=== PATIENT | female | born 1930 | race Caucasian/White ===

== ENCOUNTER 2018-05-15 13:07 | Observation (INO) | payer MEDICARE ==
[~2018-05-15] VITALS: Ht 165.1 cm; Wt 64.0 kg
[2018-05-15] MEDS ORDERED: ASPIRIN 81 MG TABLET CHEW PO ONE (13:30)
[2018-05-15] MEDS ORDERED: ASPIRIN 81 MG TABLET CHEW ONE (13:45)
[2018-05-15 13:55] LABS: BASOPHILS # (AUTO) 0.05 x10^3/uL (0-0.1); BASOPHILS % (AUTO) 0 % (0-1); EOSINOPHILS # (AUTO) 0.01 x10^3/uL (0-0.4); EOSINOPHILS % (AUTO) 0 % (1-7); LYMPHOCYTES # (AUTO) 1.57 x10^3/uL (1-3.4); LYMPHOCYTES % (AUTO) 13 % (22-44); MD NO; MEAN CORPUSCULAR HEMOGLOBIN 31.9 pg (27.0-34.8); MEAN CORPUSCULAR HGB CONC 34.2 g/dL (32.4-35.8); MEAN CORPUSCULAR VOLUME 93.3 fL (80-100); MEAN PLATELET VOLUME 7.4 fL (7.4-10.4); MONOCYTES # (AUTO) 1.37 x10^3/uL (0.2-0.8); MONOCYTES % (AUTO) 12 % (2-9); NEUTROPHILS # (AUTO) 8.79 x10^3/uL (1.8-6.8); NEUTROPHILS % (AUTO) 75 % (42-75); PLATELET COUNT 274 x10^3/uL (130-400); RED BLOOD COUNT 4.06 x10^6/uL (3.82-5.3); RED CELL DISTRIBUTION WIDTH 13.9 % (9.6-15.2)
[2018-05-15 14:05] LABS: ANION GAP 11 mmol/L (5-15); CALCIUM 8.9 mg/dL (8.5-10.1); CHLORIDE 105 mmol/L (98-107)
[2018-05-15 14:06] LABS: ALANINE AMINOTRANSFERASE 16 U/L (12-78); ALBUMIN 3.6 g/dL (3.4-5.0)
[2018-05-15 14:10] LABS: ALKALINE PHOSPHATASE 93 U/L (45-117); BILIRUBIN,TOTAL 1.4 mg/dL (0.2-1.0); TROPONIN I < 0.015 ng/mL (0.000-0.045)
[2018-05-15] MEDS ORDERED: vitamin d3 PO (14:23)
[2018-05-15] MEDS ORDERED: ATOR20TA PO (14:23)
[2018-05-15] MEDS ORDERED: ASPI-515 PO (14:23)
[2018-05-15] MEDS ORDERED: vitamin PO (14:23)
[2018-05-15] MEDS ORDERED: MAALOX/HYOSCYAMINE/LIDOCAINE 45 ML BTL PO ONE (16:00)
[2018-05-15] MEDS ORDERED: ONDANSETRON 2MG/ML, 2ML IVPush PRN (17:00)
[2018-05-15] MEDS ORDERED: ACETAMINOPHEN 325 MG TABLET PO PRN (17:00)
[2018-05-15] MEDS ORDERED: ONDANSETRON ODT 4 MG PO PRN (17:00)
[2018-05-15] MEDS ORDERED: LABETALOL 5MG/ML, 20ML IVPush PRN (17:00)
[2018-05-15] MEDS ORDERED: ENALAPRILAT 1.25 MG/ML, 2ML IVPush PRN (17:00)
[2018-05-15 17:38] LABS: TROPONIN I < 0.015 ng/mL (0.000-0.045)
[2018-05-15] MEDS ORDERED: OMNIPAQUE 350 MG/ML, 100ML BOTTLE ONE (18:46)
[2018-05-15 20:00] VITALS: BP 152/94
[2018-05-15] MEDS ORDERED: ATORVASTATIN 20 MG TABLET PO SCH (21:00)
[2018-05-15] MEDS ORDERED: ASPIRIN 81 MG TABLET EC PO SCH (21:00)
[2018-05-15] MEDS ORDERED: BIMA2.5D EACHEYE (21:03)
[2018-05-15] MEDS ORDERED: DORZ10DR7 EACHEYE (21:03)
[2018-05-15] MEDS ORDERED: DORZOLAMIDE OPHTH 2%, 10ML EACHEYE SCH (21:30)
[2018-05-15] MEDS: HEPARIN 5,000 UNITS/ML, 1ML SQ SCH (22:37)
[2018-05-15 23:38] LABS: TROPONIN I < 0.015 ng/mL (0.000-0.045)
[2018-05-16 02:38] VITALS: BP 121/72
[2018-05-16] MEDS: HEPARIN 5,000 UNITS/ML, 1ML SQ SCH ×2 (05:16→14:05)
[2018-05-16 05:25] LABS: BASOPHILS # (AUTO) 0.01 x10^3/uL (0-0.1); BASOPHILS % (AUTO) 0 % (0-1); EOSINOPHILS # (AUTO) 0.02 x10^3/uL (0-0.4); EOSINOPHILS % (AUTO) 0 % (1-7); LYMPHOCYTES # (AUTO) 1.31 x10^3/uL (1-3.4); LYMPHOCYTES % (AUTO) 14 % (22-44); MD NO; MEAN CORPUSCULAR HEMOGLOBIN 32.2 pg (27.0-34.8); MEAN CORPUSCULAR HGB CONC 34.2 g/dL (32.4-35.8); MEAN CORPUSCULAR VOLUME 94.1 fL (80-100); MEAN PLATELET VOLUME 7.7 fL (7.4-10.4); MONOCYTES # (AUTO) 1.35 x10^3/uL (0.2-0.8); MONOCYTES % (AUTO) 15 % (2-9); NEUTROPHILS # (AUTO) 6.68 x10^3/uL (1.8-6.8); NEUTROPHILS % (AUTO) 71 % (42-75); PLATELET COUNT 258 x10^3/uL (130-400); RED BLOOD COUNT 3.99 x10^6/uL (3.82-5.3); RED CELL DISTRIBUTION WIDTH 13.8 % (9.6-15.2)
[2018-05-16 05:26] LABS: ANION GAP 9 mmol/L (5-15); CALCIUM 8.9 mg/dL (8.5-10.1); CHLORIDE 107 mmol/L (98-107)
[2018-05-16 05:27] LABS: CREATININE 0.68 mg/dL (0.55-1.02)
[2018-05-16 07:17] VITALS: BP 150/71
[2018-05-16] MEDS ORDERED: PANTOPRAZOLE 40 MG IV IVPush SCH (07:30)
[2018-05-16] MEDS ORDERED: REGADENOSON 0.4 MG/5 ML SYRINGE ONE (08:20)
[2018-05-16] MEDS ORDERED: DORZOLAMIDE HOMEOPHTH SCH (09:00)
[2018-05-16] MEDS ORDERED: TIMOLOL MALEATE HOMEOPHTH SCH (09:00)
[2018-05-16] MEDS ORDERED: LUMIGAN EACHEYE SCH (09:00)
[2018-05-16] MEDS ORDERED: TEMPLATE NON-FORMULARY MED. (Lumigan 1 DROP) EACHEYE SCH (21:00)
== END 2018-05-16 17:05 | disposition home or self-care (01) ==
LOC: ED 14:40 → INTOOBSV 15:49 → EDIP 15:49 → 4EST 19:11 → DCLOUNGE 05-16 16:53
PROVIDERS: ADMIT Internal Medicine; ATTEND Hospitalist
DX: R07.89 Other chest pain (principal); H40.9 Unspecified glaucoma; E78.5 Hyperlipidemia, unspecified; Z96.641 Presence of right artificial hip joint
CPT/HCPCS: 36415; 71046; 71275; 78452; 80048; 80053; 83735; 83880; 84100; 84443; 84484; 85025; 85379; 93005; 93017; 93306; 96372; 96374; 97162; 99285; A9502; C9113; C9898; G0378; J1644; J2785; Q9967